=== PATIENT | male | born 1955 | race Caucasian/White ===

== ENCOUNTER → 2023-10-09 10:39 | Outpatient (BNVA) | payer MEDICARE, OTHER, SELFPAY | PROVIDERS: Family Provider Family Medicine; PCP Nurse Practitioner; Referring Provider Family Medicine; Visit Provider Student in an Organized Health Care Education/Training Program | DX: M75.41 Impingement syndrome of right shoulder | CPT/HCPCS: 20610; 73030; 99204; J1100; J2795; J3301 ==

== ENCOUNTER → 2023-11-17 10:04 | Outpatient (BNVA) | payer MEDICARE, OTHER, SELFPAY | PROVIDERS: Family Provider Family Medicine; PCP Nurse Practitioner; Visit Provider Physician Assistant | DX: M75.42 Impingement syndrome of left shoulder; M75.22 Bicipital tendinitis, left shoulder | CPT/HCPCS: 20610; 73030; 99213; J3301 ==

== ENCOUNTER → 2023-12-29 10:39 | Outpatient (BNVA) | payer MEDICARE, OTHER, SELFPAY | PROVIDERS: Family Provider Family Medicine; PCP Nurse Practitioner; Visit Provider Physician Assistant | DX: M75.22 Bicipital tendinitis, left shoulder (principal); M75.42 Impingement syndrome of left shoulder | CPT/HCPCS: 99213 ==

== ENCOUNTER → 2024-01-06 07:50 | Outpatient (BNVA) | payer MEDICARE, SELFPAY | PROVIDERS: Family Provider Family Medicine; PCP Nurse Practitioner; Visit Provider Physician Assistant | DX: M75.41 Impingement syndrome of right shoulder (principal) | CPT/HCPCS: 99213 ==

== ENCOUNTER 2024-01-14 07:30 | Outpatient (CLI) | payer MEDICARE, SELFPAY ==
--- NOTE | 2024-01-14 08:00 | MR_ITS ---
WS: [id number] MRI LEFT SHOULDER NONCONTRAST TECHNIQUE: Sagittal T2, coronal T1, T2 and proton density imaging. Axial gradient PDE imaging. CLINICAL INFORMATION: left shoulder rotator cuff impingement COMPARISON: None. FINDINGS: Mild degenerative arthritis AC joint. Subacromial subdeltoid fluid. Narrowing of the subacromial spac e with impingement on the distal supraspinatus. Subacromial spurring. Chronic thinning of the distal supraspinatus with tendinopathy. Intrasubstance tears involve the distal supraspinatus with chronic d egeneration. Near full-thickness tear of the supraspinatus just deep to the acromion. No significant tendon retraction. Tiny insertional tear distal infraspinatus. Chronic thinning of the infraspinatus tendon. Normal teres minor. Subscapularis tendon appears intact. Biceps tendon appears intact within the bici pital groove. Intra-articular biceps tendon appears intact. Degenerative fraying of the glenoid labru m. Moderate degenerative narrowing of the glenohumeral articulation. MR/MR shoulder LT wo con* [id number] IMPRESSION: 1. Subacromial spurring with impingement of the distal supraspinatus. High-gra de chronic thinning and degeneration of the distal supraspinatus with tendinopa thy and intrasubstance tears. Near full-thickness tear just deep to the acromio n. 2. Tendinopathy infraspinatus with tiny insertional tear. 3. Rotator cuff is otherwise normal. 4. Biceps tendon appears intact within the bicipital groove. 5. Intra-articular biceps tendon appears normal. 6. Biceps labral anchor appears intact. 7. Mild degenerative arthritis AC joint with subacromial spurring and narrowin g of the subacromial space. Subacromial subdeltoid fluid.
== END 2024-01-14 07:31 | disposition home or self-care (01) ==
LOC: RAD 07:30
PROVIDERS: Family Provider Family Medicine; PCP Nurse Practitioner; Visit Provider Physician Assistant
DX: M75.92 Shoulder lesion, unspecified, left shoulder (principal); M25.712 Osteophyte, left shoulder; M75.22 Bicipital tendinitis, left shoulder; M75.42 Impingement syndrome of left shoulder
CPT/HCPCS: 73221

== ENCOUNTER 2024-01-25 10:05 | Outpatient (CLI) | payer MEDICARE, SELFPAY ==
--- NOTE | 2024-01-25 10:15 | MR_ITS ---
WS: [id number] MRI RIGHT SHOULDER NONCONTRAST TECHNIQUE: Sagittal T2, coronal T1, T2 and proton density imaging. Axial gradient PDE imaging. CLINICAL INFORMATION: Rotator cuff impingement, right shoulder pain COMPARISON: None. FINDINGS: Moderate degenerative arthritis AC joint with fluid and edema. Narrowing of the subacromial space wit h impingement of the distal supraspinatus. Advanced degenerative narrowing of the glenohumeral articu lation with subchondral cystic change involving the glenoid. High-grade tear of the distal supraspinatus with tendon retraction to the level of the acromion. House Player yuan thinning of the distal supraspinatus. Tendinopathy infraspinatus which appears intact. Normal ter es minor. The subscapularis appears intact. Tendinopathy with small intrasubstance tear subscapularis . Biceps tendon appears intact within the bicipital groove. Degenerative fraying of the glenoid labru m. Intra-articular biceps tendon appears intact. Normal bone marrow signal in the humeral head.. MR/MR shoulder RT wo con* [id number] IMPRESSION: 1. Moderate degenerative arthritis AC joint with fluid and edema. 2. High-grade tear distal supraspinatus with tendon retraction to the level of the acromion. Chronic thinning of the supraspinatus. 3. Tendinopathy infraspinatus. 4. Tendinopathy subscapularis with a tiny intrasubstance tear distally. 5. Biceps tendon appears intact within the bicipital groove. 6. Advanced degenerative narrowing of the glenohumeral articulation with subch ondral cystic change involving the glenoid.
== END 2024-01-25 10:06 | disposition home or self-care (01) ==
LOC: RAD 10:06
PROVIDERS: Family Provider Family Medicine; PCP Nurse Practitioner; Visit Provider Physician Assistant
DX: M75.41 Impingement syndrome of right shoulder (principal); M19.011 Primary osteoarthritis, right shoulder; M75.121 Complete rotator cuff tear or rupture of right shoulder, not specified as traumatic; M75.91 Shoulder lesion, unspecified, right shoulder
CPT/HCPCS: 73221

== ENCOUNTER → 2024-03-18 09:42 | Outpatient (BNVA) | payer MEDICARE, SELFPAY | PROVIDERS: Family Provider Family Medicine; PCP Nurse Practitioner; Visit Provider Student in an Organized Health Care Education/Training Program | DX: M75.42 Impingement syndrome of left shoulder; M75.22 Bicipital tendinitis, left shoulder; M75.101 Unspecified rotator cuff tear or rupture of right shoulder, not specified as traumatic | CPT/HCPCS: 99213 ==

== ENCOUNTER → 2024-05-26 13:53 | Outpatient (BNVA) | payer MEDICARE, OTHER, SELFPAY | PROVIDERS: Family Provider Family Medicine; PCP Nurse Practitioner; Visit Provider Student in an Organized Health Care Education/Training Program | DX: M75.22 Bicipital tendinitis, left shoulder (principal); M75.102 Unspecified rotator cuff tear or rupture of left shoulder, not specified as traumatic; M19.012 Primary osteoarthritis, left shoulder; M75.42 Impingement syndrome of left shoulder; R03.0 Elevated blood-pressure reading, without diagnosis of hypertension | CPT/HCPCS: 73030; 99214 ==

== ENCOUNTER 2024-06-30 08:05 | Day surgery (SDC) | payer MEDICARE, OTHER, SELFPAY ==
--- NOTE | 2024-06-29 11:14 | ANES.PREANE2 ---
Pre-Anesthetic Assessment Height/Weight: Height 6 ft 1 in Preop Diagnosis: Rotator cuff tear Operation Date: 06/30/24 11:20 Proposed Procedures p Shoulder Arthroscopy(Left) - Italo Murphy, DO s Subacromial Decompression(Left) - Italo Derasatt DO s AC Joint Resection(Left) - Italo Jeffrey, DO s rotator cuff debridement versus repair(Left) - Italo Jeffrey, DO s biceps tenotomy versus tenodesis,(Left) - Italo Blaine, DO s Subacromial Ballon Spacer(Left) - Italo Derasatt, DO Was Beta Lucila taken within 24 hours: N/A Was Clonidine taken within 24 hours: N/A Social No alcohol and No tobacco Exam alert, oriented x 3, clear to auscultation bilaterally and regular rate & rhythm Airway Submandibular: within normal limits Cervical ROM: within normal limits Mallampati: Class I Dentition: full Anesthetic Plan ASA status: 1 Anesthesia: General and Regional (specify below) Other: No prior issues with anesthesia NPO since yesterday evening History of laryngeal/bronchospasm when he gets a bad upper respiratory infection. This has happened 5 or 6 times over the last 15 years Denies any cardiac or pulmonary issues METs greater than 4 Plan for general anesthesia with preop nerve block Medications/Allergies Home Medications ?Medication ?Instructions ?Recorded ?Confirmed ?Last Taken ?Type collagen 1 cap PO DAILY 05/26/24 06/30/24 06/28/24 History magnesium 1 cap PO DAILY 05/26/24 06/30/24 05/29/24 History omega-3 fatty acids 1,000 mg 1,000 mg PO DAILY 05/26/24 06/30/24 05/29/24 History capsule osteo bioflex 1 cap PO DAILY 05/26/24 06/30/24 05/29/24 History turmeric 400 mg capsule 400 mg PO DAILY 05/26/24 06/30/24 05/29/24 History vitamin d3 1 cap PO DAILY 05/26/24 06/30/24 05/29/24 History vitamin k 1 cap PO DAILY 05/26/24 06/30/24 05/29/24 History zinc 1 cap PO DAILY 05/26/24 06/30/24 05/29/24 History hydrocodone 7.5 mg-acetaminophen 1 tab PO Q6H PRN pain #20 tabs 06/30/24 Unknown Rx 325 mg tablet ondansetron 4 mg disintegrating 4 mg PO Q8H PRN nausea and 06/30/24 Unknown Rx tablet vomiting 3 days #9 tabs Allergies Allergy/AdvReac Type Severity Reaction Status Date / Time No Known Allergies Allergy Verified 05/26/24 14:02 [facility] Anesthesia Family History Mother Appendicitis, Onset Age: 60 . Father COPD (chronic obstructive pulmonary disease) Social History Smoking and tobacco/nicotine status: former use of tobacco/nicotine Second hand smoke exposure: No Alcohol intake: never Substance/Drug Use: never Adopted: No Caregiver/support person: No Lives independently: Yes Household members: spouse Marital status: Current occupational status: retired Current occupational exposures/hazards: Yes Pets and animals: No Do you think of yourself as: Straight/Heterosexual Current gender identity: Male Data Anesthesia Cardiac Studies: No Data to Display
[2024-06-30] VITALS (10 sets, daily range): BP systolic 112–136; BP diastolic 79–88; PULSE 78–89; RESP 15–18; TEMP 36.1–36.4; O2SAT 97–99
[2024-06-30] MEDS: sodium chloride 0.9% 1,000 ML 30 ML IV (08:31)
[2024-06-30] MEDS: acetaminophen 1,000 MG/100 ML PIGGYBACK 400 MG IV (08:32)
[2024-06-30] MEDS: ketorolac 30 mg/mL INJ IVP (08:35)
--- NOTE | 2024-06-30 10:22 | ANES.PROC ---
Anesthesia Procedures Procedure/Date: 06/30/24 Nerve Block ^: Nerve Block 1: Main Anesthesia: general anesthesia Time Out Performed: Yes Consent: requested by attending/covering physician and from patient Nerve block location: interscalene Anesthesia monitors applied: pulse oximetry, EKG, BP cuff and oxygen Nerve block position: supine Anesthetic Used: ropivicaine 0.5% Amount of anesthesia used (mL): 30 Ultrasound used to: recognize landmarks Nerve Stimulator Used?: Yes Interscalene/Femoral BLK: other needle (pjunk 4inch) Injection: neg aspiration of heme Patient Tolerated Procedure: well Complications: none Additional Comments: decadron 4mg added to block
--- NOTE | 2024-06-30 10:25 | W.PM.OPSFHP ---
Same Day Surgery H&P Indication for Procedure/HPI DATE OF PROCEDURE: June 30, 2024 CHIEF COMPLAINT/INDICATIONFOR SURGICAL PROCEDURE: Left shoulder rotator cuff tear, AC joint arthritis, cuff impingement, biceps tendinitis PREOP DIAGNOSIS: Left shoulder rotator cuff tear, AC joint arthritis, cuff impingement, collin PLANNED PROCEDURE: Operation Date: 06/30/24 10:00 Proposed Procedures p Shoulder Arthroscopy(Left) - Italo Jeffrey, DO s Subacromial Decompression(Left) - Italo Jeffrey, DO s AC Joint Resection(Left) - Italo Jersey, DO s rotator cuff debridement versus repair(Left) - Italo Jeffrey, DO s biceps tenotomy versus tenodesis,(Left) - Italo Jeffrey, DO s Subacromial Ballon Spacer(Left) - Italo Jeffrey, DO Medications/Allergies* Home Medications ?Medication ?Instructions ?Recorded ?Confirmed ?Type collagen 1 cap PO DAILY 05/26/24 06/30/24 History magnesium 1 cap PO DAILY 05/26/24 06/30/24 History omega-3 fatty acids 1,000 mg 1,000 mg PO DAILY 05/26/24 06/30/24 History capsule osteo bioflex 1 cap PO DAILY 05/26/24 06/30/24 History turmeric 400 mg capsule 400 mg PO DAILY 05/26/24 06/30/24 History vitamin d3 1 cap PO DAILY 05/26/24 06/30/24 History vitamin k 1 cap PO DAILY 05/26/24 06/30/24 History zinc 1 cap PO DAILY 05/26/24 06/30/24 History Allergies/Adverse Reactions Allergy/AdvReac Type Severity Reaction Status Date / Time No Known Allergies Allergy Verified 05/26/24 14:02 Current Medications: Generic Name Dose Route Start Last Admin Trade Name Freq PRN Reason Stop Dose Admin Sodium Chloride 1,000 mls @ 30 mls/hr 06/30/24 08:15 06/30/24 08:31 Sodium Chloride 0.9% IV 07/01/24 08:14 30 mls/hr .Q24H KAREN Administration Pertinent History/Comorbid Conditions* Family History (Updated 08/27/23 @ 14:40 by Karyn Galvan LPN) Father Mother Appendicitis Mother, Onset Age: 60 . COPD (chronic obstructive pulmonary disease) Father Social History Smoking and tobacco/nicotine status: former use of tobacco/nicotine Second hand smoke exposure: No Alcohol intake: never Substance/Drug Use: never Adopted: No Caregiver/support person: No Lives independently: Yes Household members: spouse Marital status: Current occupational status: retired Current occupational exposures/hazards: Yes Pets and animals: No Do you think of yourself as: Straight/Heterosexual Current gender identity: Male Pertinent Exam Findings alert, oriented x 3, operative site marked and procedure specific exam findings Please refer to detailed orthopedic examination on 05/26/2024 listed below: Left Shoulder -Tender to palpation-tenderness over biceps tendon and ac joint -Range of motion-decreased secondary to pain, only active ROM to 90 -Rotator cuff strength-external intact 5/5 strength with elbows at the side -Jobes test-positive -Speed's Test-positive -O'Briens test-positive -Hernandez impingement-positive -Crossover test positive -Radial pulse 2+, normal cap refill under 2 seconds and patient can wiggle fingers. -Sensation to hand intact -Weakness on internal rotation with elbows at the side Recommendations Surgery/Procedure today Other Plans: Plan to proceed to the OR today for left shoulder diagnostic and surgical arthroscopy with subacromial decompression, AC joint resection, rotator cuff debridement versus repair, possible biceps tenotomy versus tenodesis, possible subacromial balloon spacer. Patient understands the ins and outs procedure the risk benefits complication alternatives surgery into shared decision-making elects proceed with surgical intervention. All questions answered at this time. Coding Level of Care Code Acute Code for Samantha Fwdaisy
[2024-06-30] MEDS: ceFAZolin 2,000 MG in sodium chloride 0.9% (plus) 50 ML 100 MG IV (10:33)
[2024-06-30] MEDS: EPINEPHrine 1 mg/mL INJ 2 MG XX (11:59)
--- NOTE | 2024-06-30 13:15 | PM.OP ---
Operative Report Date of procedure: June 30, 2024 Surgeon: Italo Murphy DO Newspaper Or Periodical Editor: Caio Murphy PA-C: PA was necessary for assistance in this case with shoulder positioning to execute the procedure, assistance with instrumentation, as well as implant fixation when necessary, assist with wound closure and dressing application. Procedure: Preoperative diagnosis: Left shoulder rotator cuff tear, AC joint arthritis, cuff impingement, biceps tendinitis Post-op diagnosis:? Left shoulder subscapularis tendon tear, biceps tendinitis and tear, AC joint arthritis, subacromial bursitis, rotator cuff tear, partial labral tearing Procedure done: Left?shoulder?diagnostic and surgical arthroscopy with arthroscopic rotator cuff repair(massive-involving supraspinatus and infraspinatus rotator cuff tendons) Left?shoulder?diagnostic and surgical arthroscopy biceps tenodesis Left shoulder diagnostic and surgical arthroscopy with subscapularis tendon repair Left?shoulder?diagnostic and surgical arthroscopy labral debridement Left?shoulder?diagnostic and surgical arthroscopy acromioclavicular joint resection Left?shoulder?diagnostic and surgical arthroscopy subacromial decompression (acromioplasty and bursectomy) Surgeon: Italo Murphy DO Estimated blood loss: [20 ]mL IV fluids: See anesthesia record Implants: Arthrex 4.75 loop and tack biceps tenodesis Arthrex kit Arthrex 2.6 rotator cuff fiber tack x 3 Arthrex 4.75 bio composite swivel lock suture anchor x 2 Arthrex scorpion and suture tape Complications: None Condition: stable Disposition: same day Brief History: Patient been seen and worked up in the outpatient setting for Left?shoulder?pain.? Pt had an MRI which showed findings below.? Patient's failed conservative treatment and has weakness.? We talked about treatment options far as nonoperative and operative intervention..? We talked about risk benefits complication alternatives surgical nonsurgical treatment options.? Understanding risk of surgery pt agrees to proceed with surgical intervention.? All questions have been answered at this time.? Patient elects proceed with surgery and consent obtained in preop for left shoulder diagnostic and surgical arthroscopy with subacromial decompression, AC joint resection, rotator cuff debridement versus repair, possible biceps tenotomy versus tenodesis, possible subacromial balloon spacer. MR/MR shoulder LT wo con* [id number] IMPRESSION: 1. Subacromial spurring with impingement of the distal supraspinatus. High-grade chronic thinning and degeneration of the distal supraspinatus with tendinopathy and intrasubstance tears. Near full-thickness tear just deep to the acromion. 2. Tendinopathy infraspinatus with tiny insertional tear. 3. Rotator cuff is otherwise normal. 4. Biceps tendon appears intact within the bicipital groove. 5. Intra-articular biceps tendon appears normal. 6. Biceps labral anchor appears intact. 7. Mild degenerative arthritis AC joint with subacromial spurring and narrowing of the subacromial space. Subacromial subdeltoid fluid. Procedure: Patient seen evaluated in the preoperative holding area.? Consent reviewed and signed with patient.? Once again reviewed patient's MRI results as well as? planned surgical intervention.? Correct extremity marked.? Patient seen evaluated by anesthesia department received regional anesthesia.? Once ready for surgery was taken back to the operative suite.? Patient then subsequently underwent anesthesia per the anesthesia department was transported onto the OR table.? Patient was then placed into a lateral decubitus position with a beanbag and was appropriately secured to the bed.? All bony prominences well-padded.? Patient then had the Left upper extremity was then prepped and draped in standard orthopedic fashion.? Patient received appropriate preoperative antibiotics.? Final timeout performed. The Left upper extremity was then held in hanging from traction utilizing sterile technique.? Next started with standard diagnostic and surgical arthroscopy with posterior portal position introduced arthroscope into the glenohumeral joint.? Visualized the glenohumeral joint I then introduced a spinal needle within the rotator cuff interval to confirm appropriate anterior portal placement.? Once this was confirmed I then made my small incision and then introduced my arthroscopic shaver into the glenohumeral joint.? Immediately encountering the glenohumeral joint was clearly evident patient had a massive rotator cuff tear superiorly and unstable bicep tendon anchor with superior labral tearing and bicep tendon tearing and inflammation as well as a subscapularis tendon tear of the upper 50%. After flushing the joint fluid, was clearly evident patient had biceps tendon tearing as well as Superior labral tear. Patient had appreciable unstable biceps anchor most pronounced in the superior labrum. Given there appears to be healthy intra-articular tendon plan was for an intra-articular biceps tenodesis at the superior portion as it enters the intertubercular groove. Thermal wand introduced into the rotator interval. I then release of the rotator interval to have appropriate visualization and the ability to perform biceps tenodesis. At this point I established a purple passport cannula which was introduced. Next I performed an Arthrex loop and tap biceps tenodesis. Passer was then made around the tendon luggage tag stitch around and then thru the tendon and around twice I then utilized a thermal wand to release the biceps tendon at the anchor to perform with tenotomy. At this point in time given patient already had a subscapularis tendon tear my plan was to incorporate this repair into the same anchor with the bicep tenodesis given the same location. As result at this point in time I utilized a thermal wand to first release all adhesions around the upper border tear as this was torn completely off superiorly and retracted to the glenohumeral joint I had to utilize a thermal wand to release any adhesions as well as then utilized blunt probe to mobilize once I had this appropriately mobilized I then utilized an Arthrex fiber link suture and passed this through the tear and then through the lower border to secure this together and then had excellent fixation and control of the upper border subscapularis tendon tear. I then subsequently took the sutures loaded into a 4.75 swivel lock suture anchor with the suture loaded for the bicep tenodesis loop and tack. I then utilized A punch was then placed in appropriate position at the entry point into the intertubercular groove just superior to the subscapularis tendon. Punch was then introduced to the appropriate depth. The suture loaded on the swivel lock was then advanced held under appropriate tension and shoulder lock anchor was then advanced and had excellent fixation. Excess suture was then cut biceps tenodesis and subscapularis tendon repair was complete. I then utilized a thermal wand to seal the edges of the superior labrum. ?Next there was significant labral tearing at biceps anchor and circumferential.? ? I then subsequently utilized a a arthroscopic shaver and thermal wand to perform a labral debridement.? This point time I then visualized the glenohumeral joint.? The glenohumeral joint was found to have grade 2 chondromalacia mostly with small area grade 3 on glenoid with no unstable articular cartilage.? Axillary pouch was free of loose bodies from viewing the posterior portal.? Next a visualized the rotator cuff superiorly and there was found to be a massive tear of the rotator cuff of the supraspinatus and infraspinatus rotator cuff tendons recoiled to the glenohumeral joint just adjacent to the glenoid at the superior labrum. I utilized a spinal needle to abbi this location.? ?This completed my work within the glenohumeral joint all fluid was suctioned free of the joint.? ?Next I reintroduced the arthroscope posteriorly.? And went to the subacromial space.? I established my lateral working portal at the site of which my spinal needle was marking of the rotator cuff tear.? Thermal wand was then introduced laterally and then I subsequently performed extensive bursectomy of the subacromial space.? Patient had a large anterior bone spur.? At this point time I proceeded with my AC joint resection thermal wand was used and track to the anterior edge of the acromion and then tracked all the way to the AC joint.? Once identified the AC joint this was very arthritic in nature.? Thermal wand was placed anteriorly to establish appropriate plane for AC joint resection.? Once appropriate margins and anterior inferior and anterior capsule was released I then introduced arthroscopic shaver and a bur and performed AC joint resection of both the acromion to cope plane at the AC joint and a distal clavicle resection was then performed totaling 1 cm in size and was confirmed.? This completed my AC joint resection and I then introduced the arthroscopic shaver laterally while continuing to view posteriorly.? I then performed an acromioplasty to complete my subacromial decompression prior to fixing the rotator cuff tear.? Next the arthroscopic shaver was then used previous spinal needle spot that is marked the massive rotator cuff tear. At this point in time I utilized a thermal wand and arthroscopic shaver to perform standard releases of the rotator cuff to assess its tendon retraction and see ability for repair utilizing a grasper I was able to lateralize the repair and bring this to the medial footprint of the rotator cuff which at this point in time given the tendon quality was deemed to being amendable for a repair. Given the massive miss of this tear however my plan was for 3-0.6 Arthrex fiber tacks anchor for my medial row in 2 lateral row anchors. As a result I subsequently went ahead and utilized an arthroscopic shaver and a bur to decorticate the rotator cuff footprint and removal of all fibrous debris. At this point in time I then utilized a spinal needle to develop my accessory portal. Small incision was then made this was in satisfactory manage ankle directly over the medial rotator cuff footprint. I utilized my bookkeeping assistant throughout this procedure. At this point in time I then utilized a blunt to dilate and then utilized a punch and then subsequently from posterior to anterior fashion punched and impacted and set a 2.6 fiber tack starting posteriorly and worked anteriorly and placed 3 total. These were all set and had excellent fixation. Next I subsequently began the rotator cuff repair. I introduced a blue passport cannula laterally to help maintain suture management as well as to aid with not having any soft tissue bridges. At this point in time I then subsequently loaded my sutures and passes through the rotator cuff individually with a total of 6 passes of suture throughout the rotator cuff going from anterior to posterior my bookkeeping assistant utilized an additional suture grasper to dock these out of the anterior portal until finalize fixation. Once these were all passed I then tested and had excellent tendon excursion and ability for repair. At this point in time I loaded the anterior one 3 and 5 sutures and loaded this into a 4.75 swivel lock Arthrex suture anchor. Once these were loaded I then utilized a punch and with the help of my assistance the punch was set to the appropriate depth and then loaded and under visualization of the repair pulled the rotator cuff over for repair and then secured the 4.75 swivel lock suture anchor for my lateral and anterior anchor. This brought the rotator cuff directly onto the decorticated footprint and had good compression no evidence of instability and a satisfactory fixation was noted. At this point in time I utilized an arthroscopic suture cutter to remove all excess suture. Next in the same fashion I loaded sutures 2, 4, and 6 for the posterior and lateral suture anchor. These were loaded into an Arthrex 4.75 swivel lock. Once these were loaded I utilized assistance with my punch and placed this in the posterior and lateral position. This was punched in appropriate depth the sutures were loaded appropriately tensioned and once on direct visualization had brought over the posterior portion of the rotator cuff and had satisfactory tendon excursion and compression of it upon the rotator cuff footprint I then subsequently secured the swivel lock suture anchor to appropriate depth and had excellent fixation. At this point in time I took the shoulder through range of motion and had excellent fixation of the rotator cuff repair and moved as an entire unit there is no open holes or spaces as a result I removed and cut all excess suture on the posterior lateral anchor. This point in time this completed my rotator cuff repair. Once again I took the shoulder through range of motion as well as reviewed this from the posterior and the lateral portals and had excellent fixation of the rotator cuff. At this point in time he had good tendon quality I do not feel as though there is need for any augmentation as well as given we did a rotator cuff repair anteriorly on the subscapularis tendon I did not feel as though he would be a great candidate for a subacromial balloon spacer as an additive for his fixation as this is not the indication as this would have too much mobility. As a result this completed my repair of the shoulder and I was satisfied with this fixation ability of the tendon to be pulled over and for repair. ?I then switched the arthroscope to the lateral portal to confirm this tension-free repair.? I took the?shoulder?through range of motion and the rotator cuff repair was stable and moved as a unit. ?Next I then introduced the arthroscopic shaver posteriorly to complete my subacromial decompression appropriate complaining all the way up to the lateral edge of the acromion.? This completed the surgery.? All fluid was suctioned from the?shoulder.? All instruments were removed.? The lateral incision was then closed with nylon stitches.? As well as the portal sites closed with portal nylon stitches.? Xeroform 4 x 4's ABD and tape was then applied to the Left?shoulder?and was placed into a?shoulder?abduction pillow sling for rotator cuff repair.? Patient was then awakened from anesthesia and then taken back to PACU in stable condition.? Patient tolerated procedure without any issues. Disposition: Patient taken back in stable condition recovering well.? Dressings on in place clean dry and intact.? Will be nonweightbearing to the Left upper extremity.? Follow rotator cuff repair protocol, given this was a massive rotator cuff tear and repair would recommend 8 weeks of immobilization before getting patient going with physical therapy. Patient to follow-up with me in the office in 2 weeks.? Patient will receive appropriate discharge instruction as well as pain medication postoperatively.? All questions answered.? We will contact the office for any questions or concerns.
--- NOTE | 2024-06-30 13:18 | W.PM.BPON ---
Date of Procedure: [July 08, 2024] Surgeon: [Dr. Murphy DO] Neurodiagnostic Technologist(s): [Caio Murphy PA-C] Procedure(s) performed: [Left shoulder diagnostic surgical arthroscopy Subscapularis tendon repair Biceps tenodesis repair AC joint resection Subacromial decompression Massive rotator cuff repair Labral debridement] Findings of the procedure(s): [Left shoulder subscapularis tendon tear, biceps tendinitis and tear, AC joint arthritis, subacromial bursitis, rotator cuff tear, partial labral tearing. Procedure went well and as planned.] Estimated blood loss: [20 mL] Specimen(s) removed: [N/A] Post-operative diagnosis: [Left shoulder subscapularis tendon tear, biceps tendinitis and tear, AC joint arthritis, subacromial bursitis, rotator cuff tear, partial labral tearing.]
--- NOTE | 2024-06-30 13:23 | PM.PACU ---
PACU note Narrative: Patient is a 68-year-old male that underwent a left diagnostic and surgical arthroscopy. Patient transferred to PACU in stable condition. Pain is well controlled. shoulder Dressing on , dry and in place. Patient's operative arm is in a shoulder immobilizer. Patient is awake and alert and able to respond to my questions accordingly. Patient's fingers are warm with good perfusion. Normal cap refill under 2 seconds. Radial pulse 2+. unable to assess further range of motion in arm due to sling. Patient is able to wiggle fingers. Sensation to hand intact. Exam: awake Disposition: discharged
--- NOTE | 2024-06-30 15:05 | ANE.PACU2 ---
Inpatient post-anesthesia follow up: Airway intact: Yes Vital signs: Temperature 97.2 F Pulse Rate 82 Respiratory Rate 16 Blood Pressure 136/84 Pulse Oximetry 97 Oxygen Delivery Me thod Room Air Oxygen Flow Rate Fraction of Inspir ed Oxygen Hydration adequate: Yes Nausea and vomiting: No Pain level: 1 Mental status: Baseline
== END 2024-06-30 14:40 | disposition home or self-care (01) ==
PROVIDERS: PCP Family Medicine; Visit Provider Student in an Organized Health Care Education/Training Program
PROC: (CPT 29805; principal; 2024-06-30 10:00)
PROC: (CPT 29826; 2024-06-30 10:00)
PROC: 0RSH0ZZ Reposition Left Acromioclavicular Joint, Open Approach (ICD-10-PCS; CPT 29827; 2024-06-30 10:00)
PROC: (CPT 29827; 2024-06-30 10:00)
PROC: (CPT 23405; 2024-06-30 10:00)
DX: M75.102 Unspecified rotator cuff tear or rupture of left shoulder, not specified as traumatic (principal); M19.012 Primary osteoarthritis, left shoulder; M75.42 Impingement syndrome of left shoulder; M75.22 Bicipital tendinitis, left shoulder; M94.212 Chondromalacia, left shoulder; Z79.899 Other long term (current) drug therapy; Z87.891 Personal history of nicotine dependence; X58.XXXA Exposure to other specified factors, initial encounter
CPT/HCPCS: 29827; 29828; 29826; 29824; C1713; J0131; J0171; J0690; J1100; J1885; J2405; J2704; J3010; J3490; J7030

== ENCOUNTER → 2024-07-13 08:49 | Outpatient (BNVA) | payer MEDICARE, OTHER, SELFPAY | PROVIDERS: PCP Family Medicine; Visit Provider Student in an Organized Health Care Education/Training Program | DX: Z98.890 Other specified postprocedural states (principal) | CPT/HCPCS: 99024 ==

== ENCOUNTER → 2024-08-24 14:10 | Outpatient (BNVA) | payer MEDICARE, OTHER, SELFPAY | PROVIDERS: PCP Family Medicine; Visit Provider Student in an Organized Health Care Education/Training Program | DX: Z98.890 Other specified postprocedural states (principal) | CPT/HCPCS: 99213 ==

== ENCOUNTER 2024-08-25 12:56 | Outpatient (RCR) | payer MEDICARE, OTHER, SELFPAY | END 2024-09-07 23:59 | disposition home or self-care (01) | LOC: SPT 12:56 | PROVIDERS: Visit Provider Student in an Organized Health Care Education/Training Program | DX: Z98.890 Other specified postprocedural states (principal) | CPT/HCPCS: 97110; 97161 ==

== ENCOUNTER 2024-09-08 05:00 | Outpatient (RCR) | payer MEDICARE, OTHER, SELFPAY | END 2024-10-08 23:59 | disposition home or self-care (01) | LOC: SPT 05:00 | PROVIDERS: Visit Provider Student in an Organized Health Care Education/Training Program | DX: Z98.890 Other specified postprocedural states (principal) | CPT/HCPCS: 97110 ==

== ENCOUNTER → 2024-10-12 14:09 | Outpatient (BNVA) | payer MEDICARE, OTHER, SELFPAY | PROVIDERS: Visit Provider Student in an Organized Health Care Education/Training Program | DX: Z98.890 Other specified postprocedural states (principal) | CPT/HCPCS: 99213 ==

== ENCOUNTER → 2025-01-05 08:28 | Outpatient (BNVA) | payer MEDICARE, OTHER, SELFPAY | PROVIDERS: PCP Family Medicine; Visit Provider Family Medicine | DX: Z00.00 Encounter for general adult medical examination without abnormal findings (principal); E78.2 Mixed hyperlipidemia; R73.9 Hyperglycemia, unspecified; Z12.5 Encounter for screening for malignant neoplasm of prostate; Z11.59 Encounter for screening for other viral diseases; Z11.4 Encounter for screening for human immunodeficiency virus [HIV]; E55.9 Vitamin D deficiency, unspecified | CPT/HCPCS: 80053; 80061; 82306; 83036; 84443; 85025; 86803; 87806; G0103 ==

== ENCOUNTER → 2025-01-16 13:33 | Outpatient (BNVA) | payer MEDICARE, OTHER, SELFPAY | PROVIDERS: PCP Family Medicine; Visit Provider Podiatrist Foot & Ankle Surgery | DX: M20.41 Other hammer toe(s) (acquired), right foot (principal); M20.42 Other hammer toe(s) (acquired), left foot | CPT/HCPCS: 28010; 28011; 73630; 99203; J9999 ==

== ENCOUNTER → 2025-02-09 10:40 | Outpatient (BNVA) | payer MEDICARE, OTHER, SELFPAY | PROVIDERS: PCP Family Medicine; Visit Provider Podiatrist Foot & Ankle Surgery | DX: M20.41 Other hammer toe(s) (acquired), right foot (principal); M20.42 Other hammer toe(s) (acquired), left foot; M79.673 Pain in unspecified foot | CPT/HCPCS: 28010; J9999 ==